=== PATIENT | female | born 1945 | race African-American/Black ===

== ENCOUNTER → 2021-01-29 | Day surgery (SDC) | payer MEDICARE, OTHER ==
[2021-01-25 14:28] LABS: BASOPHILS % 0.6 % (0.0-1.0); EOSINOPHILS # (AUTO) 0.1 (0.0-0.4); EOSINOPHILS % 2.6 % (0.0-6.0); HEMATOCRIT 40.7 % (34.2-44.1); HEMOGLOBIN 12.8 g/dL (12.0-16.0); LYMPHOCYTES # (AUTO) 1.4 (1.0-3.2); LYMPHOCYTES % 27.4 % (18.0-39.1); MEAN CORPUSCULAR HEMOGLOBIN 30.3 pg (28-32); MEAN CORPUSCULAR HGB CONC 31.4 g/dL (31-35); MEAN CORPUSCULAR VOLUME 96.4 fL (81-99); MONOCYTES # (AUTO) 0.4 (0.2-0.8); MONOCYTES % 7.5 % (4.4-11.3); NEUTROPHILS % 61.5 % (38.7-80.0); PLATELET COUNT 225 x10e3/uL (140-360); RED BLOOD COUNT 4.22 x10e6/uL (3.6-5.1); RED CELL DISTRIBUTION WIDTH 13.9 % (11.7-14.4)
[~2021-01-29] MED LIST: ARTHROTEC EC 71 EACH PO; FENTANYL CITRATE/PF 100MCG/2 ML INJ ONE; LOSARTAN POTAS100 MG PO; MIDAZOLAM HCL 2 MG/2 ML VIAL ONE; OR PHACO EYE KIT ONE; OXYBUTYNIN CHLOR5 MG PO; PRAVASTATIN SOD20 MG PO; PREDNISONE5 MG/5 ML OP; PREOP PHACO EYE KIT ONE; VIT D3 PO
[2021-01-29 11:15] VITALS: BP 156/93
== END | disposition home or self-care (01) ==
LOC: OR 07:29
PROVIDERS: ATTEND Ophthalmology
DX: H25.11 Age-related nuclear cataract, right eye (principal); I10 Essential (primary) hypertension; E78.5 Hyperlipidemia, unspecified; K21.9 Gastro-esophageal reflux disease without esophagitis; Z01.810 Encounter for preprocedural cardiovascular examination; Z01.812 Encounter for preprocedural laboratory examination; Z20.822 Contact with and (suspected) exposure to COVID-19; Z79.899 Other long term (current) drug therapy
CPT/HCPCS: 36415; 66984; 85025; J2250; J3010; U0002; V2632

== ENCOUNTER → 2024-10-06 | Day surgery (SDC) | payer MEDICARE, OTHER ==
[2024-10-04 13:20] LABS: BASOPHILS % 0.4 % (0.0-1.0); EOSINOPHILS % 3.1 % (0.0-6.0); LYMPHOCYTES % 35.6 % (18.0-39.1); MONOCYTES % 10.1 % (4.4-11.3); NEUTROPHILS % 50.6 % (38.7-80.0); RED CELL DISTRIBUTION WIDTH 15.6 % (11.7-14.4)
[2024-10-04 13:44] LABS: EST GLOMERULAR FILTRATION RATE 90.0 ML/MIN (>=60)
[~2024-10-06] MED LIST changes: +AMLODIPINE BESYL5 MG PO; +ARAVA20 MG PO; +EQUATE PAIN RELIEVER PO; +GLYCOPYRROLATE INJ 0.2 MG/ML VIAL ONE; +LATANOPROST2.5 ML OP; +LIDOCAINE HCL 2% LOCAL INJ 5 ML SDV VIAL INJ ONE; -MIDAZOLAM HCL 2 MG/2 ML VIAL ONE; +MIRABEGRON ER25 MG; +OMEPRAZOLE40 MG PO; -OR PHACO EYE KIT ONE; +ORENCIA125 MG/1 M; -PREOP PHACO EYE KIT ONE; +PROPOFOL IV EMULSION 10 MG/ML 20 ML VIAL ONE; +ZEBETA10 MG PO
[2024-10-06] MEDS: LACTATED RINGER'S 1,000 ML ONE (09:30)
[2024-10-06 11:46] VITALS: TEMP 97.6
[2024-10-06 12:15] VITALS: BP 146/86; PULSE 76; RESP 18; O2SAT 99
== END | disposition home or self-care (01) ==
LOC: OR 07:43
PROVIDERS: ATTEND Surgery
DX: K29.60 Other gastritis without bleeding (principal); K44.9 Diaphragmatic hernia without obstruction or gangrene; K21.9 Gastro-esophageal reflux disease without esophagitis; I10 Essential (primary) hypertension; Z01.810 Encounter for preprocedural cardiovascular examination; Z01.812 Encounter for preprocedural laboratory examination
CPT/HCPCS: 36415; 43239; 71046; 80053; 85025; 88305; 93005; J2003; J2704; J3010; J7121; 88304

== ENCOUNTER → 2024-11-09 | Day surgery (SDC) | payer MEDICARE, OTHER ==
[2024-11-03 14:55] LABS: BASOPHILS % 0.8 % (0.0-1.0); EOSINOPHILS % 2.9 % (0.0-6.0); LYMPHOCYTES % 26.5 % (18.0-39.1); MONOCYTES % 9.8 % (4.4-11.3); NEUTROPHILS % 59.6 % (38.7-80.0); RED CELL DISTRIBUTION WIDTH 15.2 % (11.7-14.4)
[2024-11-03 15:22] LABS: EST GLOMERULAR FILTRATION RATE 91.0 ML/MIN (>=60)
[~2024-11-09] MED LIST changes: +ACETAMINOPHEN 1000 MG/100 ML 100 ML IV ONE; +DEXAMETHASONE SOD PHOS INJ 4 MG/ML SDV ONE; +FAMOTIDINE 20 MG/2 ML VIAL IV ONE; -GLYCOPYRROLATE INJ 0.2 MG/ML VIAL ONE; +LACTATED RINGER'S 1,000 ML ONE; +ONDANSETRON HCL INJ 2MG/ML 2ML 2 MG/ML VIAL ONE; +ROCURONIUM BROMIDE 1 ML IV ONE; +SEVOFLURANE INHAL SOLN 250 ML PEN BTL ONE; +SUGAMMADEX SODIUM 200 MG/2 ML VIAL IV ONE; +ULTRAM 50MG50 MG PO; +VITAMIN B-121000 MCG PO
[2024-11-09 12:14] VITALS: TEMP 97.3
[2024-11-09] MEDS: FENTANYL CITRATE/PF 100MCG/2 ML INJ ONE (12:25)
[2024-11-09] MEDS: KETOROLAC TROMETHAMINE 30 MG/ML VIAL ONE (12:54)
[2024-11-09 13:50] VITALS: BP 145/90; PULSE 68; RESP 16; O2SAT 93
== END | disposition home or self-care (01) ==
LOC: OR 07:34
PROVIDERS: ATTEND Surgery
DX: K80.10 Calculus of gallbladder with chronic cholecystitis without obstruction (principal); K76.0 Fatty (change of) liver, not elsewhere classified; I10 Essential (primary) hypertension; E78.5 Hyperlipidemia, unspecified; E66.01 Morbid (severe) obesity due to excess calories; M19.90 Unspecified osteoarthritis, unspecified site; Z01.810 Encounter for preprocedural cardiovascular examination; Z01.812 Encounter for preprocedural laboratory examination; Z01.818 Encounter for other preprocedural examination; Z79.899 Other long term (current) drug therapy
CPT/HCPCS: 36415; 47562; 71046; 80053; 85025; 88304; 93005; C1766; J0131; J1100; J1308; J1885; J2003; J2405; J2704; J3010; J7121